=== PATIENT | male | born 1990 | race Caucasian/White ===

== ENCOUNTER 2018-10-09 12:34 | Observation (INO) ==
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
[2018-10-09 14:28] LABS: BASOPHILS % (AUTO) 0.6 % (0.2-1.0); EOSINOPHILS # (AUTO) 0.2 x10^3/uL (0.0-0.2); EOSINOPHILS % (AUTO) 3.2 % (0.9-2.9); HEMATOCRIT 39.9 % (42.0-54.0); HEMOGLOBIN 13.2 g/dL (13.5-18.0); LYMPHOCYTES # (AUTO) 2.7 X10^3/uL (1.3-2.9); LYMPHOCYTES % (AUTO) 39.2 % (21.0-51.0); MEAN CORPUSCULAR HEMOGLOBIN 28.5 pg (27.0-34.0); MEAN CORPUSCULAR HGB CONC 33.2 g/dL (33.0-35.0); MEAN CORPUSCULAR VOLUME 85.8 fL (80.0-100.0); MONOCYTES # (AUTO) 0.5 x10^3/uL (0.3-0.8); MONOCYTES % (AUTO) 6.6 % (0.0-13.0); NEUTROPHILS # (AUTO) 3.5 x10^3/uL (2.2-4.8); NEUTROPHILS % (AUTO) 50.4 % (42.0-75.0); PLATELET COUNT 173 X10^3/uL (150.0-450.0); RED BLOOD COUNT 4.65 X10^6/uL (4.7-6.0); RED CELL DISTRIBUTION WIDTH 16.1 % (11.6-16.5); WHITE BLOOD COUNT 6.9 X10^3/uL (3.6-10.0)
[2018-10-09 15:01] LABS: ALANINE AMINOTRANSFERASE 35 Units/L (12-78); ALBUMIN 3.7 g/dL (3.4-5.0); ALKALINE PHOSPHATASE 64 Units/L (46-116); ASPARTATE AMINO TRANSFERASE 21 Units/L (15-37); BLOOD UREA NITROGEN 14 mg/dL (7-18); CARBON DIOXIDE 24.3 mmol/L (21-32); CHLORIDE 104 mmol/L (98-107); CKMB % 0.7 % (<4); CREATINE KINASE 381 Units/L (39-308); CREATINE KINASE MB 2.5 ng/mL (0-4.0); SODIUM 140 mmol/L (136-145); TOTAL PROTEIN 7.8 g/dL (6.4-8.2); TROPONIN I < 0.02 ng/mL (0-1.5); eGFR NON BLACK RACES > 60 (>60)
[2018-10-09 15:49] VITALS: BMI 75.9
--- NOTE | 2018-10-09 15:55 | RAD ---
HISTORY: Syncope Study: Two-view chest Comparison: None Technique: PA and lateral chest Findings: Soft tissues and bony thorax are normal. The heart size configuration airway and vascularity are normal. The lungs are clear. There is no hilar or mediastinal adenopathy. IMPRESSION: 1. No acute cardiopulmonary abnormalities. Reported By:
[2018-10-09 20:03] LABS: CKMB % 0.6 % (<4); CREATINE KINASE 282 Units/L (39-308); CREATINE KINASE MB 1.7 ng/mL (0-4.0); TROPONIN I < 0.02 ng/mL (0-1.5)
[2018-10-10 02:27] LABS: CKMB % 0.6 % (<4); CREATINE KINASE 260 Units/L (39-308); CREATINE KINASE MB 1.5 ng/mL (0-4.0); TROPONIN I < 0.02 ng/mL (0-1.5)
[2018-10-10 06:35] LABS: BASOPHILS % (AUTO) 0.6 % (0.2-1.0); EOSINOPHILS # (AUTO) 0.2 x10^3/uL (0.0-0.2); HEMATOCRIT 37.9 % (42.0-54.0); HEMOGLOBIN 12.7 g/dL (13.5-18.0); LYMPHOCYTES % (AUTO) 34.2 % (21.0-51.0); MEAN CORPUSCULAR HEMOGLOBIN 28.5 pg (27.0-34.0); MEAN CORPUSCULAR HGB CONC 33.4 g/dL (33.0-35.0); MEAN CORPUSCULAR VOLUME 85.1 fL (80.0-100.0); MONOCYTES # (AUTO) 0.4 x10^3/uL (0.3-0.8); NEUTROPHILS # (AUTO) 3.3 x10^3/uL (2.2-4.8); NEUTROPHILS % (AUTO) 56.2 % (42.0-75.0); PLATELET COUNT 158 X10^3/uL (150.0-450.0); RED BLOOD COUNT 4.45 X10^6/uL (4.7-6.0); RED CELL DISTRIBUTION WIDTH 15.9 % (11.6-16.5); WHITE BLOOD COUNT 5.9 X10^3/uL (3.6-10.0)
[2018-10-10 06:45] LABS: ALANINE AMINOTRANSFERASE 33 Units/L (12-78); ALBUMIN 3.4 g/dL (3.4-5.0); ALKALINE PHOSPHATASE 56 Units/L (46-116); ASPARTATE AMINO TRANSFERASE 18 Units/L (15-37); BLOOD UREA NITROGEN 13 mg/dL (7-18); CALCIUM 8.6 mg/dL (8.5-10.1); CARBON DIOXIDE 28.4 mmol/L (21-32); CHLORIDE 103 mmol/L (98-107); CREATININE 0.85 mg/dL (0.70-1.30); SODIUM 139 mmol/L (136-145); TOTAL PROTEIN 7.1 g/dL (6.4-8.2); eGFR NON BLACK RACES > 60 (>60)
[2018-10-10] MEDS ORDERED: PERCOCET TAB 5/325 MG PO ONE (10:10)
[2018-10-10 10:57] LABS: ABG BASE EXCESS 2.8 mmol/L (-2.0-2.0); ABG HCO3 28.5 mmol/L (22-26)
[2018-10-10] MEDS ORDERED: DUONEB 0.5 MG/3 MG NEB SCH (13:00)
--- NOTE | 2018-10-10 13:32 | PCM.PROG ---
Progress Note - Progress Note for Day of Date of Exam: 10/10/18 - Subjective Subjective: 27 WM ADMITTED ON 10/09 WITH REPORTS OF MULTIPLE SYNCOPAL EPISODES, WITH HX OF MORBID OBESITY, SLEEP APNEA AND HTN. PT HAD ABG WITH PO2 65. RESP CONSULT FOR SUPPLEMENTAL O2 AND RESP THERAPY. DISCUSSED WITH PT DUE TO MO, WE CANNOT OBTAIN SCANS, DIAGNOSTIC TESTING APPROPRIATE FOR HIS PMH. PLAN TO TRANSFER TO [facility]. - Past Medical Family Social History Past Med/Fam/Surg Hx: No changes since H&P Allergies: Allergies No Known Drug Allergies Allergy (Unverified 10/09/18 13:21) - Review of Systems ROS: No change since H&P - Vital Signs and I&O's Vital Signs: Temperature 98.2 F Pulse Rate [Left Brachial] 81 Pulse Rate 82 Respiratory Rate 22 Blood Pressure [Left Arm] 131/62 O2 Sat by Pulse Oximetry 94 Intake and Output: Intake & Output 10/08/18 10/09/18 10/10/18 10/11/18 11:59 11:59 11:59 11:59 Intake Total 1380 / 1380 Output Total 0 / 0 Balance 1380 / 1380 - Physical Exam Oriented: Normal Eyes: Normal Ear: Normal Nose: Normal Throat: Normal Respiratory: Diminished, Wheezes Cardiovascular: Edema : Normal Auscultation: Bowel Sounds: Normal Tenderness: Normal Skin: Normal Musculoskeletal: Normal Psychiatric: Normal Mood Description: Calm Affect: Normal Speech Pattern: Clear, Appropriate - Laboratory and Diagnostics Result Diagrams: 10/10/18 06:03 10/10/18 06:03 Labs: 10/10/18 10:43 Sputum - Expectorated Sputum - Final Laboratory WBC 5.9 X10^3/uL (3.6-10.0) 10/10/18 06:03 RBC 4.45 X10^6/uL (4.7-6.0) L 10/10/18 06:03 Hgb 12.7 g/dL (13.5-18.0) L 10/10/18 06:03 Hct 37.9 % (42.0-54.0) L 10/10/18 06:03 MCV 85.1 fL (80.0-100.0) 10/10/18 06:03 MCH 28.5 pg (27.0-34.0) 10/10/18 06:03 MCHC 33.4 g/dL (33.0-35.0) 10/10/18 06:03 RDW 15.9 % (11.6-16.5) 10/10/18 06:03 Plt Count 158 X10^3/uL (150.0-450.0) 10/10/18 06:03 MPV 8.0 fL (7.4-11.0) 10/10/18 06:03 Neut % (Auto) 56.2 % (42.0-75.0) 10/10/18 06:03 Lymph % (Auto) 34.2 % (21.0-51.0) 10/10/18 06:03 [place] % (Auto) 6.0 % (0.0-13.0) 10/10/18 06:03 Eos % (Auto) 3.0 % (0.9-2.9) H 10/10/18 06:03 Baso % (Auto) 0.6 % (0.2-1.0) 10/10/18 06:03 Neut # (Auto) 3.3 x10^3/uL (2.2-4.8) 10/10/18 06:03 Lymph # (Auto) 2.0 X10^3/uL (1.3-2.9) 10/10/18 06:03 [place] # (Auto) 0.4 x10^3/uL (0.3-0.8) 10/10/18 06:03 Eos # (Auto) 0.2 x10^3/uL (0.0-0.2) 10/10/18 06:03 Baso # (Auto) 0.0 X10^3/uL (0.0-0.1) 10/10/18 06:03 Absolute Nucleated RBC 0.0 /100WBC 10/10/18 06:03 Sample Site Left brachial 10/10/18 10:50 ABG pH 7.390 (7.35-7.45) 10/10/18 10:50 ABG pCO2 47.0 mmHg (35.0-45.0) H 10/10/18 10:50 ABG pO2 65.0 mmHg (80.0-100.0) L 10/10/18 10:50 ABG HCO3 28.5 mmol/L (22-26) H 10/10/18 10:50 ABG O2 Saturation 92.0 % (90-100) 10/10/18 10:50 ABG Base Excess 2.8 mmol/L (-2.0-2.0) H 10/10/18 10:50 Hakeem Test Na 10/10/18 10:50 A-a Gradient 26.0 mmHg 10/10/18 10:50 FiO2 21.0 10/10/18 10:50 Blood Gas Comments Reece well aw 10/10/18 10:50 Sodium 139 mmol/L (136-145) 10/10/18 06:03 Corrected Sodium TNP 10/10/18 06:03 Potassium 4.4 mmol/L (3.5-5.1) 10/10/18 06:03 Chloride 103 mmol/L (98-107) 10/10/18 06:03 Carbon Dioxide 28.4 mmol/L (21-32) 10/10/18 06:03 BUN 13 mg/dL (7-18) 10/10/18 06:03 Creatinine 0.85 mg/dL (0.70-1.30) 10/10/18 06:03 Est GFR (MDRD) Af Amer > 60 (>60) 10/10/18 06:03 Est GFR (MDRD) Non-Af > 60 (>60) 10/10/18 06:03 Glucose 106 mg/dL (65-99) H 10/10/18 06:03 Calcium 8.6 mg/dL (8.5-10.1) 10/10/18 06:03 Corrected Calcium TNP 10/10/18 06:03 Total Bilirubin 0.30 mg/dL (0.2-1.0) 10/10/18 06:03 AST 18 Units/L (15-37) 10/10/18 06:03 ALT 33 Units/L (12-78) 10/10/18 06:03 Alkaline Phosphatase 56 Units/L (46-116) 10/10/18 06:03 Creatine Kinase 260 Units/L (39-308) 10/10/18 01:51 CK-MB (CK-2) 1.5 ng/mL (0-4.0) 10/10/18 01:51 CK/CKMB % Calc 0.6 % (<4) 10/10/18 01:51 Troponin I < 0.02 ng/mL (0-1.5) 10/10/18 01:51 Total Protein 7.1 g/dL (6.4-8.2) 10/10/18 06:03 Albumin 3.4 g/dL (3.4-5.0) 10/10/18 06:03 Globulin 3.7 g/dL (2.5-4.5) 10/10/18 06:03 Albumin/Globulin Ratio 0.9 Ratio (1.1-2.1) L 10/10/18 06:03 - Plan (1) Syncope Status: Acute Plan: SUPPLEMENTAL O2, EKG MONITORING, BP CONTROL. Probable transfer for fur ther CARDIAC work-up due to morbid obesity (2) Hypertension Status: Acute Plan: Monitor BP (3) Obesity Status: Acute
[2018-10-10 15:08] VITALS: BP 142/67
== END 2018-10-10 14:00 | disposition home or self-care (01) ==
LOC: MED/SURG
PROVIDERS: ADMIT Internal Medicine; ATTEND Internal Medicine
DX: R55 Syncope and collapse; R06.02 Shortness of breath; E66.01 Morbid (severe) obesity due to excess calories; R94.31 Abnormal electrocardiogram [ECG] [EKG]; I10 Essential (primary) hypertension; I25.10 Atherosclerotic heart disease of native coronary artery without angina pectoris; G47.39 Other sleep apnea
CPT/HCPCS: 36415; 36600; 71020; 71046; 80053; 82550; 82553; 82803; 84484; 85025; 87070; 87205; 93005; 94640; 94760; A4216; A4222; G0378; J7620